=== PATIENT | male | born 1990 | race Caucasian/White ===

== ENCOUNTER 2021-12-26 09:23 | Emergency (ER) | payer MEDICAID ==
[~2021-12-26] VITALS: Ht 177.8 cm; Wt 72.6 kg
[2021-12-26 09:23] VITALS: BP_SYST 117
--- NOTE | 2021-12-26 09:27 | NUR ---
BROUGHT TO TRIAGE TENT AND TRIAGED. REPORT GIVEN TO DEANNA
--- NOTE | 2021-12-26 09:30 | NUR ---
PT STATES HE HAS BEEN + FOR COVID FOR LAST 3 DAYS, STATES FEVER HAS SUBSIDED, NOW WITH SORE THROAT AND BILATERAL EAR PAIN/CONGESTION.
--- NOTE | 2021-12-26 10:05 | NUR ---
DR SENIOR IN TENT FOR EXAM
[2021-12-26] MEDS ORDERED: IBUP-1969 PO (10:41)
[2021-12-26] MEDS ORDERED: DECADRON 4 MG TABLET PO SCH (10:45)
--- NOTE | 2021-12-26 10:57 | NUR ---
Patient given written and verbal discharge instructions and verbalizes understanding. ER MD discussed with patient the results and treatment provided. Patient in stable condition. ID arm band removed. Rx of MOTRIN given. Patient educated on pain management and to follow up with PMD. Pain Scale . Opportunity for questions provided and answered. Medication side effect fact sheet provided.
[2021-12-26 10:59] VITALS: BP_SYST 122
== END 2021-12-26 10:57 | disposition home or self-care (01) ==
LOC: SED 09:23
DX: U07.1 COVID-19 (principal)
CPT/HCPCS: 99283; J8540